=== PATIENT | male | born 2000 | race Caucasian/White ===

== ENCOUNTER 2018-12-27 11:08 | Emergency (ER) | payer SELFPAY ==
[~2018-12-27] VITALS: Ht 182.9 cm; Wt 77.3 kg
[2018-12-27 11:12] VITALS: BP 129/72; PULSE 69; TEMP 97.1
[2018-12-27] MEDS ORDERED: AMOXICILLIN 8751 TAB PO ×2 (11:41→12:24)
== END 2018-12-27 12:25 | disposition home or self-care (01) ==
LOC: COL.ER 11:08
DX: S81.831A Puncture wound without foreign body, right lower leg, initial encounter (principal); Z23 Encounter for immunization; W54.0XXA Bitten by dog, initial encounter; Y93.02 Activity, running; Y92.480 Sidewalk as the place of occurrence of the external cause